=== PATIENT | female | born 1935 | race Caucasian/White ===

== ENCOUNTER 2017-06-16 09:46 | Emergency (ER) | payer MEDICARE ==
[2017-06-16 09:56] VITALS: BP 166/67
--- NOTE | 2017-06-16 10:28 | UC ---
Complaint Female HPI - HPI Summary HPI Summary: Patient presents with urgency, frequency, burning upon urination. Dark colored , cloudy urine. Denies flank pain. Denies diaphoresis and chills. Denies known fever. No abnormal vaginal discharge reported. She has had UTI's in the past and this feels similar. - History Of Current Complaint Chief Complaint: UCGU Stated Complaint: URINARY Time Seen by Provider: 06/16/17 10:18 Hx Obtained From: Patient ?: No Onset/Duration: Sudden Onset Timing: Constant Severity Initially: Mild Severity Currently: Mild Pain Intensity: 2 Pain Scale Used: 0-10 Numeric Character: Burning Aggravating Factor(s): Nothing Alleviating Factor(s): Nothing Associated Signs And Symptoms: Positive: Negative - Risk Factors Ectopic Risk Factor: Negative Ovarian Torsion Risk Factor: Negative - Allergies/Home Medications Allergies/Adverse Reactions: Allergies Allergy/AdvReac Type Severity Reaction Status Date / Time Amoxicillin Allergy Vomiting Verified 06/16/17 09:56 Codeine Allergy Vomiting Verified 06/16/17 09:56 PMH/Surg Hx/FS Hx/Imm Hx Previously Healthy: Yes - Surgical History Surgical History: Yes Surgery Procedure, Year, and Place: right shoulder surgery, right elbow surgery , tubal ligation - Family History Known Family History: Positive: Cardiac Disease, Hypertension - Social History Occupation: Retired Lives: With Family Alcohol Use: None Substance Use Type: None Smoking Status (MU): Never Smoked Tobacco Review of Systems Constitutional: Negative Respiratory: Negative Cardiovascular: Negative Gastrointestinal: Negative Genitourinary: Dysuria, Frequency, Urgency Motor: Negative Neurovascular: Negative Musculoskeletal: Negative Neurological: Negative Psychological: Negative Is Patient Immunocompromised?: No All Other Systems Reviewed And Are Negative: Yes Physical Exam Triage Information Reviewed: Yes Appearance: Well-Appearing, Well-Nourished Vital Signs: Initial Vital Signs Temp 97.0 F 06/16/17 09:52 Pulse 91 06/16/17 09:52 Resp 14 06/16/17 09:52 BP 166/67 06/16/17 09:52 Pulse Ox 97 06/16/17 09:52 Vital Signs Reviewed: Yes Eye Exam: Normal Eyes: Positive: Conjunctiva Clear Neck exam: Normal Neck: Positive: Supple, Nontender, No Lymphadenopathy Respiratory Exam: Normal Respiratory: Positive: Chest non-tender, Lungs clear Cardiovascular Exam: Normal Cardiovascular: Positive: RRR Musculoskeletal Exam: Normal Musculoskeletal: Positive: Strength Intact Neurological Exam: Normal Neurological: Positive: Alert Psychological Exam: Normal Skin Exam: Normal Complaint Female Dx - Course Course Of Treatment: BP elevated at this time. Patient is advised to follow up with primary care provider in 1-2 weeks. Patients Medications reviewed with patients. UA performed. WBC and leuks seen. Patient experiencing urgency, frequency and pain on urination. Dark urine noted. No abnormal vaginal discharge or bleeding. No CVA tenderness bilaterally. No previous UTI within last 6 months and no recent Augmentin use. Will treat for uncomplicated UTI. Pyridium given for comfort. Return precautions and follow up with PCP. Macrobid. Patient Ok with discharge. - Differential Dx/Diagnosis Differential Diagnosis/HQI/PQRI: Renal Colic, Urinary Tract Infection Provider Diagnoses: UTI Discharge - Discharge Plan Condition: Stable Disposition: HOME Prescriptions: Nitrofurantoin Monohyd Macro [Macrobid] 100 mg PO BID #10 cap Phenazopyridine TAB* [Pyridium 100 mg TAB*] 100 mg PO TID #15 tab Patient Education Materials: Urinary Tract Infection in Women (ED) Referrals: Emanuel Oliva MD [Primary Care Provider] - Additional Instructions: Dx. Urinary Tract Infection Drink plenty of fluids. Supplement with cranberry or corrales juice. You may also take an over the counter cranberry supplement. If you have any questions about this, you may ask your pharmacist. If your symptoms have not improved in 1-2 days, if you develop fever, sweats or chills, please go to your emergency room, or call your PCP. Antibiotics were prescribed to you. Please take as directed. Supplement with over the counter probiotics on the opposite schedule of your antibiotic to prevent secondary infections. Do not take together as they may counteract each other. Pyridium: This medication is used to treat pain, burning, increased urination, and increased urge to urinate. These symptoms are usually caused by infection, injury, surgery, catheter, or other conditions that irritate the lower urinary tract. Pyridium will treat the symptoms of a urinary tract infection, but this medication does not treat the actual infection. Take the antibiotic that your doctor prescribes to treat your infection. Pyridium will most likely darken the color of your urine to an orange or red color. This is a normal effect and is not cause for alarm unless you have other symptoms such as pale or yellowed skin, fever, stomach pain, nausea, and vomiting. Darkened urine may also cause stains to your underwear, which may or may not be removed by laundering. It can also permanently stain soft contact lenses, and you should not wear them while taking this medicine.
--- NOTE | 2017-06-19 07:13 | UC ---
Progress - Progress Note Progress Note: please notify pt that her infection may not be completely eradicated by the antibotic she is on stop macrobid begin bactrim ds - one twice daily for 5 days
== END 2017-06-16 10:41 | disposition home or self-care (01) ==
LOC: UCCORT 09:46
DX: N39.0 Urinary tract infection, site not specified (principal); Z88.1 Allergy status to other antibiotic agents; Z88.5 Allergy status to narcotic agent
CPT/HCPCS: 81003; 87077; 87086; 87186; 99212; G0463

== ENCOUNTER 2018-12-01 09:39 | Emergency (ER) | payer MEDICARE ==
--- OUTSIDE RECORDS SUMMARY | 2018-12-01 10:08 | XMS REPORT | Continuity of Care Document ---
:1935 External Reference #:[id number] Author Name Teto Voss D.O. Address [address] [place] [address] Care Team Providers Name Role Phone HCP given Primary Care Physician Unavailable Payers Date Identification Numbers Payment Provider Subscriber Effective: Policy Number: [id number] [facility] Jossie Wilson 1998 PayID: [id number] [facility] [address] [place] [id number] Policy Number: [id number] Medicaid Jossie Wilson PayID: [id number] [address] [place] [address] Advance Directives Description No Information Available Problems Date Description Provider Status Onset: 05/28/2011 Pure hypercholesterolemia Emanuel Oliva M.D. Active Family History Date Family Member(s) Observation Comments General Cancer Eldest sister of brain cancer at age 67 Mother of pancreatic cancer at age 93 Sister at age 95 (summer 2010) of cancer (unknown origin) Daughter w/ thyroid cancer Youngest brother at age 72 11/08/12 (lung and brain cancer); was a smoker 2nd to youngest brother at age 75 05/18/13 of lung cancer (and effects of radiation tx); was a smoker General COPD Brother Morgan from Cxs of COPD at age 72 ('03). Father From Heart Disease 1950 Age 63; Had heart problems for many yrs before, unsure of details. Mother Marietta Couch First Son Heart Disease Stent in his 40s; 1st [place] at age 47 First Son Brock Born 1957 First Daughter Cancer, Thyroid First Daughter Radha Born 1955 Number of Siblings Siblings: 11 Social History Type Date Description Comments Sex Unknown Education [employer] (NOS) Marital Status Patient is ( 11/18/17 of liver cancer) Employment Not currently working (retired) Tobacco Use Start: Unknown End: Does Not Smoke Unknown Cigarettes Cigarette Use 03/25/2014 Negative For Passive but prior to 1975 Smoke Exposure her did smoke Smoking Status Reviewed: 08/11/16 Does Not Smoke Cigarettes ETOH Use Denies alcohol use Recreational Drug Use Denies Drug Use Tobacco Use Start: Unknown Patient has never smoked Tobacco Use Start: Unknown Non Smoker / No Tobacco Sun Exposure Moderate amount of sun exposure. Does not use sunscreen Seat Belt/Car Seat Always uses a seat belt Allergies, Adverse Reactions, Alerts Date Description Reaction Status Severity Comments 08/25/2005 Codeine Active 08/25/2005 Amoxicillin Active 04/08/2014 Clarithromycin Active Drug rash (non urticarial) Medications Medication Date Status Form Strength Qnty SIG Indications Ordering Provider Colcrys 11/29/ Active Tablets 0.6mg 60tab take 2 M10.061 Sopchak, 2019 s immediately Teto, then 1 1 D.O. hour later. then next day take 1 twice a day. Tylenol Extra 07/26/ Active Tablets 500mg 60tab 1q6hr prn Unknown Strength 2011 s for pain Nitrofurantoin 05/20/ Hx Capsules 100mg 14cap 1 tab po bid N39.0 Hektor , Monohyd Macro 2016 - s x7 days LAURI Donnelly 2015 Benzonatate 09/01/ Hx Capsules 200mg 30cap 1 by mouth R05 Hazel, 2015 - s three times Emanuel 09/11/ a day as M.DJolene 2014 needed for cough Simvastatin 07/29/ Hx Tablets 20mg 1 by mouth E78.0 Hazel, 2013 - every day to Emanuel 02/08/ lower Jhon 2015 cholesterol Prednisone 04/12/ Hx Tablets 10mg 2 by mouth 693.0 Silcoff, 2013 - 2x/day thru Emanuel 04/23/ /2; Jhon 2013 starting 04/14 to 1 pill 2x/d x5d then 1 pill qd x5d then 1/2 pill daily for 5d then D/C E930.3 Prednisone 04/08/2014 - Hx Tablets 10mg 50tabs 2 by mouth 693.0 Silcoff , 04/12/2014 twice a day to Jhon Castellanos start, taper as directed E930.3 Prednisone 03/25/2014 - Hx Tablets 20mg 24tabs 1 bid for a 786.2 Riley A. 04/05/2014 week then 1 Klepack, qd M.D. Clarithromycin 03/25/2014 - Hx Tablets 250mg 20tabs 1 by mouth 786.2 Riley A. 04/05/2014 twice a day Klelisa, until gone M.D. Delsym 03/25/2014 - Hx Liquid ER 30mg/5 otc 1-2 tsp every 786.2 Riley A. 04/04/2014 ML 12 hours Jhon Rockwell Prednisone 02/20/2014 - Hx Tablets 50mg 5tabs 1 pill daily 786.2 Neetucoquintin, 02/25/2014 for 5 days, Emanuel for cough M.D. Levofloxacin 02/11/2014 - Hx Tablets 750mg 10tabs 1 by mouth 486 Silcoff, 02/21/2014 every day for Emanuel, pneumonia M.D. Benzonatate 02/11/2014 - Hx Capsules 100mg 30caps 1-2 by mouth 786.2 Neetucoquintin, 02/21/2014 three times a Emanuel, day as needed M.D. for cough Loratadine 02/10/2014 - Hx Capsules 10mg OTC 1 po qd prn Unknown 08/10/2016 Simvastatin 08/02/2013 - Hx Tablets 40mg take 1 tablet 272.0 Silcoff, 07/29/2014 by mouth Emanuel, every evening M.D. for high cholesterol Benadryl 07/26/2012 - Hx Tablets 25mg otc 1 tab every Unknown 02/10/2014 six hours prn allergies Simvastatin 06/01/2011 - Hx Tablets 20mg 90tabs 1 by mouth 272.0 Silcoff, 08/02/2013 every evening Emanuel to lower M.D. cholesterol Prednisone 09/29/2007 - Hx Tablets 20mg QS 3 po qd for 5 786.2 Neetucoquintin, 10/10/2007 days then 2 Emanuel, po qd for 3 M.D. days then 1 po qd for 3 days then D/c Levaquin 09/22/2007 - Hx Tablets 500mg 10tabs 1 PO qd For 786.2 Neetucoquintin , 09/29/2007 10 Days Jhon Castellanos Benzonatate 09/22/2007 - Hx Capsules 100mg 30caps 1-2 PO tid 786.2 Silcoff, 05/26/2011 prn For Cough Jhon Castellanos Albuterol 09/22/2007 - Hx Aerosol 90mcg/ 1units 2 Puffs Q4H 786.2 Silcoff, 05/27/2011 Act prn For cough Jesus Castellanos. Zithromax Z-Josiah 09/07/2007 - Hx Tablets 250mg 1Pack 2 Tablets PO 786.2 Kandyson, 09/12/2007 Day 1, Then Mary Jo POST One Tablet PO Day 2 To 5 Aspirin 05/08/2007 - Hx Tablets 81mg 1 PO qd For 272.0 Unknown 05/27/2011 Heart Disease Prevention Advair Diskus 10/07/2006 - Hx Inhaler 500mcg 1units 1 puff bid 786.2 klepack 05/27/2011 ;50mcg Albuterol 10/07/2006 - Hx Aerosol 90mcg/ 1units 2 Puffs Q4HR 786.2 [facility] 11/09/2006 Dose prn Zithromax Z-Josiah 09/29/2006 - Hx Tablets 250mg take as 786.2 [facility] 10/07/2006 directed #one pack Levaquin 09/29/2006 - Hx Tablets 250mg 11tabs 2 po today 786.2 klepack 10/07/2006 then 1 po q day Prednisone 09/29/2006 - Hx Tablets 20mg 10tabs 1 po bid x 5 786.2 klepack 10/07/2006 days Lipitor 08/16/2006 - Hx Tablets 20mg 90Sample 1/2 po qd for 272.0 Silcoff, 08/22/2007 high divine Castellanos M.D. Tramadol 03/25/2006 - Hx Tablets 50mg 30tabs 1-2 po q6h 729.5 Silcoff, 05/20/2006 prn for pain Jhon Castellanos Tylenol 03/23/2006 - Hx Tablets 650mg prn hs Silcoff, 05/20/2006 Jhon Castellanos Lipitor 12/27/2005 - Hx Tablets 10mg 90tabs 1 po qd to 272.0 Silcoff, 08/16/2006 reduce divine Castellanos M.D. Zithromax Z-Josiah 08/20/2005 - Hx Tablets 250mg take as 786.2 mariah 08/24/2005 directed #one pack Medications Administered in Office Medication Date Status Form Strength Qnty SIG Indications Ordering Provider TB Intradermal Administered Injection Riley Rockwell M.D. Immunizations CPT Code Status Date Vaccine Lot # [id number] Given 05/20/2006 Td Immunization 56907 Refused 08/12/2017 Influenza Virus Vaccine, Quadrivalent, Split, Preservative Free [id number] Refused 08/05/2015 Adacel or Boostrix, TDaP [id number] Refused 07/30/2014 Prevnar 13 [id number] Refused 07/27/2012 Flu, Split Virus 3Yrs [id number] Refused 05/23/2007 Zostavax Vital Signs Date Vital Result Comment 11/29/2018 4:02pm BP Systolic 152 mmHg BP Diastolic 70 mmHg 08/16/2018 8:41am BP Systolic 134 mmHg BP Diastolic 80 mmHg Heart Rate 80 /min reg Respiratory Rate 12 /min not laboured Height 63 inches 5'3" Weight 186.00 lb BMI (Body Mass Index) 32.9 kg/m2 04/18/2018 9:41am BP Systolic 146 mmHg BP Diastolic 74 mmHg BP Systolic Recheck 122 mmHg BP Diastolic Recheck 72 mmHg Height 62.75 inches 5'2.75" Weight 182.00 lb BMI (Body Mass Index) 32.5 kg/m2 08/12/2017 10:12am BP Systolic 132 mmHg BP Diastolic 80 mmHg Height 62.5 inches 5'2.50" Weight 181.00 lb BMI (Body Mass Index) 32.6 kg/m2 08/11/2016 9:59am BP Systolic 110 mmHg BP Diastolic 62 mmHg Heart Rate 84 /min reg w/ frequent extra beats Respiratory Rate 14 /min not laboured Height 62.50 inches 5'2.50" Weight 185.00 lb BMI (Body Mass Index) 33.3 kg/m2 05/20/2016 2:16pm BP Systolic 124 mmHg BP Diastolic 68 mmHg Body Temperature 97.9 F Height 62.50 inches 5'2.50" Weight 191.00 lb BMI (Body Mass Index) 34.4 kg/m2 09/01/2015 12:14pm BP Systolic 112 mmHg BP Diastolic 78 mmHg Heart Rate 80 /min reg Respiratory Rate 12 /min not laboured Body Temperature 98.1 F 08/05/2015 9:11am BP Systolic 124 mmHg BP Diastolic 86 mmHg Height 63.5 inches dec taking off low shoe Weight 184.00 lb BMI (Body Mass Index) 32.1 kg/m2 07/30/2014 11:10am BP Systolic 140 mmHg BP Diastolic 84 mmHg Heart Rate 80 /min reg Respiratory Rate 12 /min not laboured Height 62.25 inches 5'2.25" Weight 184.00 lb BMI (Body Mass Index) 33.4 kg/m2 04/08/2014 2:06pm Body Temperature 98.3 F 04/05/2014 9:27am BP Systolic 158 mmHg BP Diastolic 98 mmHg BP Systolic Recheck 134 mmHg R arm sitting BP Diastolic Recheck 72 mmHg R arm sitting Heart Rate 76 /min reg Respiratory Rate 12 /min not laboured Weight 187.00 lb 03/25/2014 4:06pm BP Systolic 150 mmHg BP Diastolic 74 mmHg Heart Rate 94 /min O2 % BldC Oximetry 97 % on Ra resting, 95% ambulating on ra Body Temperature 98.5 F Weight 191.00 lb 02/27/2014 9:20am BP Systolic 138 mmHg BP Diastolic 80 mmHg Heart Rate 88 /min reg Respiratory Rate 12 /min not laboured O2 % BldC Oximetry 97 % walking--93/94/95 Body Temperature 98.3 F Weight 194.00 lb 02/20/2014 11:41am BP Systolic 118 mmHg BP Diastolic 80 mmHg Respiratory Rate 14 /min not laboured; mod frequent cough O2 % BldC Oximetry 89 % 82 after walking Body Temperature 98.3 F Weight 194.00 lb 02/11/2014 4:47pm BP Systolic 142 mmHg BP Diastolic 90 mmHg Heart Rate 98 /min reg Respiratory Rate 14 /min not laboured O2 % BldC Oximetry 96 % on ra Body Temperature 98.8 F Height 62.75 inches 5'2.75" Weight 195.00 lb BMI (Body Mass Index) 34.8 kg/m2 07/30/2013 10:03am BP Systolic 120 mmHg BP Diastolic 78 mmHg Heart Rate 76 /min reg Respiratory Rate 12 /min not laboured Height 64 inches 5'4" Weight 195.00 lb BMI (Body Mass Index) 33.5 kg/m2 07/27/2012 12:41pm BP Systolic 132 mmHg BP Diastolic 76 mmHg Heart Rate 80 /min reg Respiratory Rate 14 /min not laboured Height 63 inches 5'3" Weight 195.00 lb BMI (Body Mass Index) 34.5 kg/m2 05/28/2011 8:47am BP Systolic 128 mmHg BP Diastolic 78 mmHg Heart Rate 80 /min reg Respiratory Rate 12 /min not laboured Height 63 inches 5'3" Weight 193.00 lb BMI (Body Mass Index) 34.2 kg/m2 10/06/2007 1:12pm BP Systolic 140 mmHg BP Diastolic 78 mmHg Weight 190.00 lb BMI (Body Mass Index) 32.6 kg/m2 09/29/2007 5:29pm BP Systolic 156 mmHg BP Diastolic 82 mmHg Respiratory Rate 16 /min not laboured Body Temperature 98.5 F Height 64 inches 5'4" Weight 195.00 lb BMI (Body Mass Index) 33.5 kg/m2 09/22/2007 11:29am BP Systolic 128 mmHg BP Diastolic 80 mmHg Heart Rate 84 /min reg Respiratory Rate 18 /min not laboured; frequent cough Body Temperature 98.6 F Height 64 inches 5'4" Weight 195.00 lb BMI (Body Mass Index) 33.5 kg/m2 Last Menstrual Period 0 09/07/2007 2:18pm BP Systolic 124 mmHg BP Diastolic 78 mmHg Body Temperature 99.3 F Height 64 inches 5'4" Weight 196.00 lb BMI (Body Mass Index) 33.6 kg/m2 Last Menstrual Period 0 05/23/2007 9:25am BP Systolic 140 mmHg BP Diastolic 80 mmHg Height 64 inches 5'4" Weight 190.50 lb BMI (Body Mass Index) 32.7 kg/m2 05/06/2007 11:40am BP Systolic 118 mmHg BP Diastolic 80 mmHg BP Systolic Standing Resting Right Arm 122 mmHg BP Diastolic Standing Resting Right Arm 80 mmHg Heart Rate 80 /min rrr Respiratory Rate 16 /min easy Height 64 inches 5'4" 10/07/2006 9:33am BP Systolic 140 mmHg BP Diastolic 74 mmHg Body Temperature 98.5 F Height 64 inches 5'4" Weight 178.00 lb BMI (Body Mass Index) 30.6 kg/m2 Last Menstrual Period 0 10/03/2006 8:41am BP Systolic 140 mmHg BP Diastolic 80 mmHg Body Temperature 98.9 F Height 64 inches 5'4" Weight 180.00 lb BMI (Body Mass Index) 30.9 kg/m2 Last Menstrual Period 0 09/29/2006 9:38am BP Systolic 122 mmHg BP Diastolic 64 mmHg Body Temperature 98.9 F Height 64 inches 5'4" Weight 180.50 lb With Boots BMI (Body Mass Index) 31.0 kg/m2 08/16/2006 9:25am BP Systolic 154 mmHg BP Diastolic 88 mmHg BP Systolic Recheck 146 mmHg R armn sitting BP Diastolic Recheck 88 mmHg R armn sitting Heart Rate 74 /min reg Height 64 inches 5'4" Weight 185.00 lb BMI (Body Mass Index) 31.8 kg/m2 05/20/2006 12:59pm BP Systolic 130 mmHg BP Diastolic 60 mmHg Height 64 inches 5'4" Weight 180.00 lb BMI (Body Mass Index) 30.9 kg/m2 03/23/2006 3:01pm BP Systolic 142 mmHg BP Diastolic 80 mmHg Heart Rate 76 /min reg Respiratory Rate 12 /min not laboured Height 64 inches 5'4" Weight 188.00 lb BMI (Body Mass Index) 32.3 kg/m2 02/14/2006 8:42am BP Systolic 126 mmHg BP Diastolic 68 mmHg BP Systolic Recheck 126 mmHg R arm sitting BP Diastolic Recheck 60 mmHg R arm sitting Height 64 inches 5'4" Weight 188.00 lb BMI (Body Mass Index) 32.3 kg/m2 Last Menstrual Period 0 12/27/2005 11:38am BP Systolic 160 mmHg R arm sitting BP Diastolic 84 mmHg R arm sitting BP Systolic Recheck 150 mmHg by RN BP Diastolic Recheck 82 mmHg by platform attendant Rate 68 /min reg Respiratory Rate 12 /min not laboured Height 64 inches 5'4" Weight 189.00 lb BMI (Body Mass Index) 32.4 kg/m2 11/24/2005 2:38pm BP Systolic 138 mmHg BP Diastolic 74 mmHg Body Temperature 97.7 F Height 64 inches 5'4" Weight 188.00 lb BMI (Body Mass Index) 32.3 kg/m2 Last Menstrual Period 0 08/20/2005 11:26am BP Systolic 130 mmHg BP Diastolic 90 mmHg Body Temperature 98.3 F Height 64 inches 5'4" Weight 190.00 lb BMI (Body Mass Index) 32.6 kg/m2 Results Test Date Facility Test Result H/L Range Note CBC Auto Diff 04/18/2018 [facility] White Blood 7.3 10^3/uL N 3.5- 10.8 [phone] Count Red Blood Count 4.30 10^6/uL N 4.00-5.40 Hemoglobin 13.2 g/dL N 12.0-16.0 Hematocrit 40 % N 35-47 Mean Corpuscular Volume 93 fL N 80-97 Mean Corpuscular Hemoglobin 31 pg N 27-31 Mean Corpuscular HGB Conc 33 g/dL N 31-36 Red Cell Distribution Width 13 % N 10.5-15 Platelet Count 271 10^3/uL N 150-450 Mean Platelet Volume 8.5 um3 N 7.4-10.4 Abs Neutrophils 4.8 10^3/uL N 1.5-7.7 Abs Lymphocytes 1.9 10^3/uL N 1.0-4.8 Abs Monocytes 0.4 10^3/uL N 0-0.8 Abs Eosinophils 0.1 10^3/uL N 0-0.6 Abs Basophils 0.1 10^3/uL N 0-0.2 Abs Nucleated RBC 0 10^3/uL Granulocyte % 65.9 % N 38-83 Lymphocyte % 25.8 % N 25-47 Monocyte % 5.9 % N 0-7 Eosinophil % 1.5 % N 0-6 Basophil % 0.9 % N 0-2 Nucleated Red Blood Cells % 0.1 Comp Metabolic Panel 04/18/2018 [facility] Sodium 141 mmol/L N 135- 145 [phone] Potassium 4.1 mmol/L N 3.5-5.0 Chloride 105 mmol/L N 101-111 Co2 Carbon Dioxide 28 mmol/L N 22-32 Anion Gap 8 mmol/L N 2-11 Glucose 99 mg/dL N 70-100 Blood Urea Nitrogen 13 mg/dL N 6-24 Creatinine 0.94 mg/dL N 0.51-0.95 BUN/Creatinine Ratio 13.8 N 8-20 Calcium 10.2 mg/dL N 8.6-10.3 Total Protein 6.8 g/dL N 6.4-8.9 Albumin 4.3 g/dL N 3.2-5.2 Globulin 2.5 g/dL N 2-4 Albumin/Globulin Ratio 1.7 N 1-3 Total Bilirubin 0.50 mg/dL N 0.2-1.0 Alkaline Phosphatase 59 U/L N 34-104 Alt 4 U/L Low 7-52 Ast 14 U/L N 13-39 Egfr Non- 56.6 >60 Egfr 68.5 >60 1 Laboratory test 06/16/2017 [facility] Urine Culture And SEE RESULT 2, 3 finding [phone] Sensitivities BELOW Laboratory test 08/11/2016 [facility] Alt (SGPT) 4 U/L Low 7-52 4 finding [phone] Lipid Profile 08/11/2016 [facility] Triglycerides 235 mg/dL N 5 (Trig/Chol/HDL) [phone] Cholesterol 232 mg/dL N 6 HDL Cholesterol 36.6 mg/dL N 7 LDL Cholesterol 148 mg/dL N 8 Laboratory test 08/11/2016 [facility] Glucose 99 mg/dL N 70-100 9 finding [phone] Laboratory test 08/11/2016 In House Hemoglobin A1c 5.8 finding Urine Micro Inhouse 05/20/2016 In House Ua WBC 10-20 with clums Ua RBC - Ua Casts - Ua Epi 3-6 Ua Other - Ua Glucose - Ua Bilirubin - Ua Ketones - Ua Specific [place] 1.005 Ua Blood - Ua PH 8.5 Ua Protein - Ua Urobilinogen - Ua Nitrite - Ua Leukocytes 2+ Laboratory test 05/20/2016 [facility] Urine Culture And SEE RESULT 10 finding [phone] Sensitivities BELOW Laboratory test 08/05/2015 [facility] Alt (SGPT) 6 U/L Low 7-52 11 finding [phone] Glucose 97 mg/dL N 70-100 12 Lipid Profile 08/05/2015 [facility] Triglycerides 260 mg/dL N 13 (Trig/Chol/HDL) [phone] Cholesterol 217 mg/dL N 14 HDL Cholesterol 48.0 mg/dL N 15 LDL Cholesterol 117 mg/dL N 16 Laboratory test 07/30/2014 [facility] Alt 5 U/L Low 7-52 17, 18 finding [phone] Lipid Profile 07/30/2014 [facility] Triglycerides 205 mg/dL N 19 (Trig/Chol/HDL) [phone] Cholesterol 195 mg/dL N 20 HDL Cholesterol 45.6 mg/dL N 21 LDL Cholesterol 108 mg/dL N 22 Occult Blood,Triple 07/30/2014 In House Misc neg x3 Laboratory test finding 04/05/2014 In House Glucose Quantitative 75 Hemoglobin A1c 6.3 Basic Metabolic Panel 03/26/2014 [facility] Sodium 136 mmol/L N 133- 145 [phone] Potassium 4.1 mmol/L N 3.7-5.6 Chloride 101 mmol/L N 101-111 Co2 Carbon Dioxide 26 mmol/L N 22-32 Anion Gap 9 mmol/L N 2-11 Glucose 190 mg/dL High 70-100 Blood Urea Nitrogen 15 mg/dL N 6-24 Creatinine 0.98 mg/dL High 0.51-0.95 BUN/Creatinine Ratio 15.3 N 8-20 Calcium 9.5 mg/dL N 8.6-10.3 Egfr Non- 54.6 N >60 Egfr 70.2 N >60 23 Order 03/25/2014 [facility] [place] Oximetry Multiple 97% resting on 24 Ra, % Xray 03/25/2014 [facility] [place] X-Ray, Chest, 2 see note 25 Views Occult 09/10/2013 In House Misc neg x3 Blood,Triple Urine Micro 07/30/2013 In House Ua WBC - Inhouse Ua RBC - Ua Casts - Ua Epi - Ua Other - Ua Glucose - Ua Bilirubin - Ua Ketones - Ua Specific [place] 1.005 Ua Blood - Ua PH 7.5 Ua Protein - Ua Urobilinogen - Ua Nitrite - Ua Leukocytes - Laboratory test finding 07/30/2013 [facility] Alt 10 U/L Low 14-54 26 [phone] Glucose 93 mg/dL 70-100 27 Lipid Profile 07/30/2013 [facility] Triglycerides 286 mg/dL High 40- 200 (Trig/Chol/HDL) [phone] Cholesterol 255 mg/dL High Less than 200 HDL Cholesterol 48 mg/dL 40-60 28 Cholesterol/HDL Ratio 5.3 Average High 1-4.44 LDL Cholesterol 149.8 High Less Than 100 29 Lipid Profile 07/27/2012 [facility] Triglycerides 224 mg/dL High 40- 200 (Trig/Chol/HDL) [phone] Cholesterol 178 mg/dL Less than 200 HDL Cholesterol 45 mg/dL 40-60 30 Cholesterol/HDL Ratio 4.0 AVERAGE 1-4.44 LDL Cholesterol 88.2 mg/dL Less Than 100 31 Laboratory test 07/27/2012 In House Occult Blood - neg x3 finding Stool Laboratory test 08/23/2011 [facility] Alt (SGPT) 9 U/L Low 14-54 finding [phone] Lipid Profile 08/23/2011 [facility] Triglyceride 251 mg/dL High 40- 200 (Trig/Chol/HDL) [phone] Cholesterol 246 mg/dL High Less Than 200 32 High Density Lipoprotein 47 mg/dL 40-60 33 Cholesterol/HDL Ratio 5.23 AVERAGE High 1-4.44 Low Density Lipoprotein 149 mg/dL High Less Than 100 34 CBC Auto Diff 05/28/2011 [facility] White Blood Count 6.5 CUMM 4.8- 10.8 [phone] Red Cell Count 4.26 CUMM 4.2-5.4 Hemoglobin 13.6 g/dL 12.0-16.0 Hematocrit 39 % 35-47 Mean Corpuscular Volume 92 um3 79-97 Mean Corpuscular Hemoglob 32 pg High 27-31 Mean Corpuscular HGB Cone 35 g/dL 32-36 Redcell Distribution WDTH 13 % 10.5-15 Platelet Count 257 CUMM 150-450 Mean Platelet Volume 8.3 um3 7.4-10.4 Gran % 63.7 % 38-83 Lymph % 27.4 % 25-47 Mononuclear % 5.9 % 1-9 Eosinophil % 2.4 % 0-6 Basophil % 0.6 % 0-2 Abs Lymphs 1.8 1.0-4.8 Abs Mononuclear 0.4 0-0.8 Absolute Neutrophil Count 4.2 1.5-7.7 Abs Eosinophils 0.2 0-0.6 Abs Basophils 0 0-0.2 Laboratory test 05/28/2011 In House Occult Blood - neg x3 finding Stool Comp Metabolic Panel 05/28/2011 [facility] Sodium 140 mmol/L 135- 145 [phone] Potassium 4.3 mmol/L 3.5-5.0 Chloride 104 mmol/L 101-111 Co2 (Carbon Dioxide) 29.0 mmol/L 22-32 Anion Gap 7.0 mmol/L 2-11 35 Glucose 101 mg/dL High 70-100 BUN 14 mg/dL 6-24 Creatinine 1.0 mg/dL 0.50-1.40 One Over Creatinine 1.00 BUN/Creatinine Ratio 14.0 8-20 Calcium 9.6 mg/dL 8.1-9.9 Total Protein 6.9 GM/DL 6.2-8.1 Albumin 4.3 GM/DL 3.2-5.2 Globulin 2.6 GM/DL 2-4 Albumin/Globulin Ratio 1.7 1-3 Bilirubin Total 0.8 mg/dL 0.4-1.5 36 Alkaline Phosphatase 53 U/L 30-110 Alt (SGPT) 9 U/L Low 14-54 Ast (Sgot) 25 U/L 12-42 eGFR Non- 53.6 > 60 eGFR 69.0 > 60 37 Lipid Profile 05/28/2011 [facility] Triglyceride 305 mg/dL High 40- 200 (Trig/Chol/HDL) [phone] Cholesterol 263 mg/dL High Less Than 200 38 High Density Lipoprotein 45 mg/dL 40-60 39 Cholesterol/HDL Ratio 5.84 AVERAGE High 1-4.44 Low Density Lipoprotein 157 mg/dL High Less Than 100 40 Laboratory test 05/28/2011 [facility] TSH 1.89 MIU/ML 0.34-5.60 finding [phone] Laboratory test 10/28/2006 [facility] Alt (SGPT) 9 U/L Low 14-54 finding [phone] Lipid Profile 10/28/2006 [facility] Cholesterol/ 5.07 AVERAGE High 1- 4.44 (Trig/Chol/HDL) [phone] HDL Ratio Cholesterol 233 mg/dL High Less Than 200 41 Triglyceride 238 mg/dL High 40-200 High Density Lipoprotein 46 mg/dL 40-60 Low Density Lipoprotein 139 mg/dL High Less Than 100 42 Basic Metabolic Panel Stat 09/29/2006 [facility] One Over Creatinine 1.00 [phone] Anion Gap 6.0 mmol/L 2-11 43 BUN 17 mg/dL 6-24 Calcium 9.5 mg/dL 8.7-10.2 Chloride 105 mmol/L 101-111 Co2 (Carbon Dioxide) 27.0 mmol/L 22-32 Glucose 115 mg/dL High 70-105 Potassium 4.1 mmol/L 3.5-5.0 Sodium 138 mmol/L 135-145 BUN/Creatinine Ratio 17.0 8-20 Creatinine 1.0 mg/dL 0.5-1.4 Laboratory test 08/08/2006 [facility] Alt (SGPT) 8 U/L Low 14-54 finding [phone] Lipid Profile 08/08/2006 [facility] Cholesterol/HD 6.44 AVERAGE High 1-4.44 (Trig/Chol/HDL) [phone] L Ratio Cholesterol 290 mg/dL High Less Than 200 44 Triglyceride 253 mg/dL High 40-200 High Density Lipoprotein 45 mg/dL 40-60 Low Density Lipoprotein 194 mg/dL High Less Than 100 45 Laboratory test 03/08/2006 In House Occult Blood - NEG X 3 finding Stool Laboratory test 02/08/2006 [facility] Alt (SGPT) 11 U/L Low 14-54 46 finding [phone] Glucose 96 mg/dL 70-105 Lipid Profile 02/08/2006 [facility] Cholesterol 233 mg/dL High Less Than 47 (Trig/Chol/HDL) [phone] 200 Triglyceride 264 mg/dL High 40-200 High Density Lipoprotein 46 mg/dL 40-60 Low Density Lipoprotein 134 mg/dL High Less Than 100 48 Cholesterol/HDL Ratio 5.07 AVERAGE High 1-4.44 Hemoglobin/Hematacrit 11/29/2005 [facility] Hematocrit 40 % 35-47 [phone] Hemoglobin 13.7 g/dL 12.0-16.0 Laboratory test 11/29/2005 [facility] TSH 2.07 MIU/ML 0.34-5.60 finding [phone] Laboratory test 11/29/2005 [facility] Alt (SGPT) 10 U/L Low 14-54 finding [phone] Lipid Profile 11/29/2005 [facility] Cholesterol/ 6.44 AVERAGE High 1- 4.44 (Trig/Chol/HDL) [phone] HDL Ratio Cholesterol 290 mg/dL High Less Than 200 49 Triglyceride 315 mg/dL High 40-200 High Density Lipoprotein 45 mg/dL 40-60 Low Density Lipoprotein 182 mg/dL High Less Than 100 50 Laboratory test finding 08/20/2005 In House Culture Throat Rapid Screen NEG Culture Throat NEG P/ 1 Because ethnic data is not always readily available, this report includes an eGFR for both -Americans and non- Americans. The National Kidney Disease Education Program (NKDEP) does not endorse the use of the MDRD equation for patients that are not between the ages of 18 and 70, are , have extremes of body size, muscle mass, or nutritional status, or are non- or non-. According to the National Kidney Foundation, irrespective of diagnosis, the stage of the disease is based on the level of kidney function: Stage Description GFR(mL/min/1.73 m(2)) 1 Kidney damage with normal or decreased GFR 90 2 Kidney damage with mild decrease in GFR 60-89 3 Moderate decrease in GFR 30-59 4 Severe decrease in GFR 15-29 5 Kidney failure <15 (or dialysis) 2 [id number] 3 SEE RESULT BELOW Name: JOSSIE WILSON : [address]: Zana Calle DO Acct: [id number] Unit: [id number] AGE: 82 Location: [facility] Re06/16/17 SEX: F Status: DEP ER SPEC: [id number] STEPHANIE: 06/16/[address] [facility] [address]: Zana Calle DO REQ: [id number] RECD: 06/16/17 STATUS: GODFREY ROBERTSON DR: [facility] Emanuel Oliva MD _ SOURCE: URINE SPDESC: ORDERED: Urine Culture COMMENTS: [id number] Procedure Result Reported Site Urine Culture Final 06/18/17- 848 ML Organism 1 KLEBSIELLA PNEUMONIAE [place] Count >100,000 (Many) CFU/ML 1. KLEBSIELLA PNEUMONIAE [facility] RX --------- ------ Ampicillin R Cefazolin <=4 S Cefepime <=1 S Ceftriaxone <=1 S Ciprofloxacin <=0.25 S Gentamicin <=1 S Levofloxacin <=0.12 S Meropenem <=0.25 S Nitrofurantoin 64 I Tetracycline <=1 S Pipercillin/Tazobactam <=4 S Trimethoprim/Sulfamethoxazole <=20 S Amoxicillin/Clavulanic Acid <=2 S Aztreonam <=1 S Contact the Microbiology Department for any additional antibiotic reporting. * ML - MAIN LAB ([facility]) . END OF REPORT * ML=Testing performed at Main Lab DEPARTMENT OF PATHOLOGY, [address] [place] [address] Anjum Jordan M.D. Director [facility] # [id number] 4 FASTING 12 HOUR 5 Desirable <150 Borderline high 150-199 High 200-499 Very High >500 6 Desirable <200 Borderline high 200-239 High >239 7 Low <40 Desirable: 40-60 High: >60 8 Desirable: <100 mg/dL Near Optimal: 100-129 mg/dL Borderline High: 130-159 mg/dL High: 160-189 mg/dL Very High: >189 mg/dL 9 FASTING 12 HOUR 10 SEE RESULT BELOW Name: JOSSIE WILSON : [address]: Cony DIMAS Acct: [id number] Unit: [id number] AGE: 81 Location: [facility] Re05/20/16 SEX: F Status: REG REF SPEC: [id number] STEPHANIE: 05/20/[address] [facility] [address]: Cony DIMAS REQ: [id number] RECD: 05/20/16 STATUS: COMP _ SOURCE: URINE SPDESC: ORDERED: Urine Culture [place] [facility] [place] [id number] Procedure Result Reported Site Urine Culture Final 05/21/16- 1611 ML No growth of clinically significant organisms * ML - MAIN LAB ([facility]) . END OF REPORT * ML=Testing performed at Main Lab DEPARTMENT OF PATHOLOGY, [address] [place] [address] Anjum Jordan M.D. Director [facility] # [id number] 11 FASTING 12 HOUR 12 FASTING 12 HOUR 13 Desirable <150 Borderline high 150-199 High 200-499 Very High >500 14 Desirable <200 Borderline high 200-239 High >239 15 Low <40 Desirable: 40-60 High: >60 16 Desirable: <100 mg/dL Near Optimal: 100-129 mg/dL Borderline High: 130-159 mg/dL High: 160-189 mg/dL Very High: >189 mg/dL 17 FASTING 12 HOUR 18 FASTING 12 HOUR 19 Desirable <150 Borderline high 150-199 High 200-499 Very High >500 20 Desirable <200 Borderline high 200-239 High >239 21 Low <40 Desirable: 40-60 High: >60 22 Desirable <100 Near Optimal 100-129 Borderline high 130-159 High 160-189 Very High >189 23 Because ethnic data is not always readily available, this report includes an eGFR for both -Americans and non- Americans. The National Kidney Disease Education Program (NKDEP) does not endorse the use of the MDRD equation for patients that are not between the ages of 18 and 70, are , have extremes of body size, muscle mass, or nutritional status, or are non- or non-. According to the National Kidney Foundation, irrespective of diagnosis, the stage of the disease is based on the level of kidney function: Stage Description GFR(mL/min/1.73 m(2)) 1 Kidney damage with normal or decreased GFR 90 2 Kidney damage with mild decrease in GFR 60-89 3 Moderate decrease in GFR 30-59 4 Severe decrease in GFR 15-29 5 Kidney failure <15 (or dialysis) 24 97% resting on RA, 95% ambulating on RA 25 [place] [facility] [place] 2011 there is no change in the cxr 26 FASTING 12 HOUR 27 FASTING 12 HOUR 28 HDL Interpretation: Undesirable: High Risk: Less than 40 mg/dL Desirable: Low Risk: Greater than 60 mg/dL 29 LDL Interpretation: Low Risk Optimal Level: LDL Less than 100 mg/dL Near or Above Optimal: LDL 100-129 mg/dL Borderline High Risk: LDL 130-159 mg/dL High Risk: LDL 160-189 mg/dL Very High Risk: LDL Greater than 189 mg/dL 30 HDL Interpretation: Undesirable: High Risk: Less than 40 MG/DL Desirable: Low Risk: Greater than 60 MG/DL 31 LDL Interpretation: Low Risk Optimal Level: LDL Less than 100 MG/DL Near or Above Optimal: LDL 100-129 MG/DL Borderline High Risk: LDL 130-159 MG/DL High Risk: LDL 160-189 MG/DL Very High Risk: LDL Greater than 189 MG/DL 32 CHOLESTEROL INTERPRETATION: Desirable: Less than 200 MG/DL Borderline-High Risk: 200-239 MG/DL High-Risk: 240 MG/DL and over 33 HDL INTERPRETATION: Undesirable: High Risk: Less than 40 MG/DL Desirable: Low Risk: Greater than 60 MG/DL 34 LDL INTERPRETATION: Low Risk Optimal Level: LDL Less than 100 MG/DL Near or Above Optimal: LDL 100-129 MG/DL Borderline High Risk: LDL 130-159 MG/DL High Risk: LDL 160-189 MG/DL Very High Risk: LDL Greater than 189 MG/DL 35 Anion gap measurement may be of limited value in the presence of any alkalosis, especially in a combined acid base disorder. . 36 A metabolite of Naproxen, O-desmethylnaproxen, has been shown to interfere with the [place] method for measuring total bilirubin. Samples from patients who have taken Naproxen have shown spurious elevation in total bilirubin levels. 37 Because ethnic data is not always readily available, this report includes an eGFR for both -Americans and non- Americans. The National Kidney Disease Education Program (NKDEP) does not endorse the use of the MDRD equation for patients that are not between the ages of 18 and 70, are , have extremes of body size, muscle mass, or nutritional status, or are non- or non-. According to the National Kidney Foundation, irrespective of diagnosis, the stage of the disease is based on the level of kidney function: Stage Description GFR(mL/min/1.73 m(2)) 1 Kidney damage with normal or decreased GFR 90 2 Kidney damage with mild decrease in GFR 60-89 3 Moderate decrease in GFR 30-59 4 Severe decrease in GFR 15-29 5 Kidney failure <15 (or dialysis) 38 CHOLESTEROL INTERPRETATION: Desirable: Less than 200 MG/DL Borderline-High Risk: 200-239 MG/DL High-Risk: 240 MG/DL and over 39 HDL INTERPRETATION: Undesirable: High Risk: Less than 40 MG/DL Desirable: Low Risk: Greater than 60 MG/DL 40 LDL INTERPRETATION: Low Risk Optimal Level: LDL Less than 100 MG/DL Near or Above Optimal: LDL 100-129 MG/DL Borderline High Risk: LDL 130-159 MG/DL High Risk: LDL 160-189 MG/DL Very High Risk: LDL Greater than 189 MG/DL 41 Classification: Borderline High . 42 CALCULATED LDL APPROXIMATES THE VALUE OF A DIRECT LDL MEASUREMENT. Classification: Borderline High . 43 Anion gap measurement may be of limited value in the presence of any alkalosis, especially in a combined acid base disorder. . 44 Classification: High . 45 CALCULATED LDL APPROXIMATES THE VALUE OF A DIRECT LDL MEASUREMENT. Classification: Very High . 46 FASTING 47 Classification: Borderline High . 48 CALCULATED LDL APPROXIMATES THE VALUE OF A DIRECT LDL MEASUREMENT. Classification: Borderline High . 49 Classification: High . 50 CALCULATED LDL APPROXIMATES THE VALUE OF A DIRECT LDL MEASUREMENT. Classification: High . Procedures Date Code Description Status 04/18/2018 05067 Electrocardiogram Complete Completed 08/12/2017 38029 Dexa Bone Density Study One Or More Sites Axial Completed Skeleton 09/01/2015 77641 X-Ray Chest Two Views Completed 03/25/2014 81876 Oximetry, Multiple Determinations (Eg, During Exercise) Completed 03/25/2014 26751 X-Ray Chest Two Views Completed 02/27/2014 99197 Oximetry, Multiple Determinations (Eg, During Exercise) Completed 02/20/2014 86250 Oximetry, Multiple Determinations (Eg, During Exercise) Completed 02/20/2014 32157 X-Ray Chest Single Completed 02/11/2014 94481 Oximetry, Single Completed 02/11/2014 17068 X-Ray Chest Two Views Completed 07/27/2012 96944 Dexa Bone Density Study One Or More Sites Axial Completed Skeleton 10/16/2007 0 Payment Completed 09/22/2007 98159 X-Ray Chest Two Views Completed 09/29/2006 86100 X-Ray Chest Two Views Completed 08/08/2006 0 Payment Completed 05/20/2006 61868 Electrocardiogram Complete Completed 03/24/2006 80406 X-Ray Tibia And Fibula,Ap & Lateral Views Completed 03/24/2006 57906 X-Ray Tibia And Fibula,Ap & Lateral Views Completed 03/24/2006 34018 X-Ray Femur, Ap & Lateral Views Completed 03/24/2006 67984 X-Ray Femur, Ap & Lateral Views Completed 02/08/2006 0 Payment Completed 11/29/2005 0 Payment Completed 11/24/2005 50877 Electrocardiogram Complete Completed 09/12/1995 11062956 Colonoscopy Completed Encounters Type Date Location Provider Dx Diagnosis Office Visit 04/18/2018 Main Office Tere Jimenez, Z01.818 Encounter for other 9:40a P.A. preprocedural examination H26.9 Unspecified cataract I49.9 Cardiac arrhythmia, unspecified E78.00 Pure hypercholesterolemia, unspecified Office Visit 05/20/2016 1:55p Main Office Cony Zaragoza, N39.0 Urinary tract PA infection, site not specified Office Visit 09/01/2015 11:15a Main Office Emanuel Oliva, J06.9 Acute upper M.D. respiratory infection, unspecified R05 Cough Office Visit 04/08/2014 1:45p Main Office Emanuel Oliva, E930.3 Erythromycin & M.D. Other Macrolides Adverse Effects 693.0 Dermatitis Due To Drugs & Medicines Office Visit 04/05/2014 9:30a Main Office Emanuel Oliva, 790.6 Abnormal Blood M.D. 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 786.2 Cough V74.1 Screening Examination Pulmonary Tuberculosis 786.7 Chest Sounds Abnormal 793.19 Other Nonspec Abnormal Finding Of Lung Field V12.61 Personal History, Pneumonia Recurrent Office Visit 02/27/2014 9:15a Main Office Emanuel Oliva M.D. 786.2 Cough 486 Pneumonia Organism Unspec 786.07 Wheezing Office Visit 02/20/2014 11:15a Main Office Emanuel Oliva M.D. 786.2 Cough 486 Pneumonia Organism Unspec 786.7 Chest Sounds Abnormal Office Visit 02/11/2014 4:45p Main Office Emanuel Oliva 786.05 Shortness Of M.D. Breath 786.2 Cough 786.7 Chest Sounds Abnormal 486 Pneumonia Organism Unspec Office Visit 10/06/2007 1:15p Main Office Emanuel Oliva 786.2 Cough M.D. Office Visit 09/29/2007 4:30p Main Office Emanuel Oliva 786.2 Cough M.D. Office Visit 09/22/2007 11:00a Main Office Emanuel Oliva 786.2 Cough M.D. Office Visit 09/07/2007 2:15p Main Office Mary Jo Burnett MD 786.2 Cough Office Visit 05/23/2007 9:30a Main Office Emanuel Oliva 786.50 Pain Chest M.D. Unspec 272.0 Hypercholesterolemia Pure V76.51 Special Screening For Malignant Neoplasms Colon V76.10 Screening For Malignant Neoplasm Breast V65.49 Counseling Other Spec Office Visit 05/06/2007 11:00a Main Office Riley Antoine 786.50 Pain Chest Unspec Jhon Rockwell Office Visit 10/07/2006 9:30a Main Office mariah 486 Pneumonia Organism Unspec 786.2 Cough Office Visit 10/03/2006 8:45a Main Office kleparosalba 486 Pneumonia Organism Unspec Office Visit 09/29/2006 9:30a Main Office kleparosalba 786.2 Cough 486 Pneumonia Organism Unspec Office Visit 08/16/2006 Main Office Neetualexiaquintin, 272.0 Hypercholesterolemia Pure 9:30a Jhon Castellanos 796.2 Blood Pressure Reading Elevated W/O Hypertension V76.10 Screening For Malignant Neoplasm Breast Office Visit 05/20/2006 12:55p Main Office Emanuel Oliva, 717.9 Internal M.D. Derangement Knee Unspec 729.81 Swelling Of Limb 719.46 Pain Joint Lower Leg 272.0 Hypercholesterolemia Pure V06.5 Tetanus Diphtheria (DT) V07.2 Prophylactic Immunotherapy Office Visit 03/23/2006 2:30p Main Office Emanuel Oliva M.D. 729.5 Pain In Limb 729.81 Swelling Of Limb Office Visit 02/14/2006 Main Office Hazel, 272.0 Hypercholesterolemia Pure 8:45a Jhon Castellanos 785.1 Palpitations 786.2 Cough V76.10 Screening For Malignant Neoplasm Breast V76.51 Special Screening For Malignant Neoplasms Colon Office Visit 12/27/2005 Main Office Hazel, 272.0 Hypercholesterolemia Pure 10:45a Jhon Castellanos 785.1 Palpitations 796.2 Blood Pressure Reading Elevated W/O Hypertension 465.9 URI Upper Respiratory Infections Acute Unspec Sites 786.2 Cough Office Visit 11/24/2005 2:30p Main Office Emanuel Oliva M.D. 785.1 Palpitations 272.0 Hypercholesterolemia Pure Office Visit 08/20/2005 11:15a Main Office mariah 462 Pharyngitis Acute 786.2 Cough Plan of Treatment Future Appointment(s):08/17/2019 9:45 am - Emanuel Oliva M.D. at Main [facility]11/29/2018 - Teto Voss D.O.M10.061 Idiopathic gout, right kneeNew Medication:Colcrys 0.6 mg - take 2 immediately then 1 1 hour later. then next day take 1 twice a day.Follow up:1 week recheck gout
--- NOTE | 2018-12-01 10:33 | ED ---
Lower Extremity - HPI Summary HPI Summary: 83 yr old female with right knee pain, swelling, redness. Onset four days ago. No trauma. She is having a hard time putting weight on the leg or bending the knee. No fever or chills. - History of Current Complaint Chief Complaint: UCLowerExtremity Stated Complaint: RIGHT LEG CONCERN - 4DAYS PAIN & SWELLING Time Seen by Provider: 12/01/18 10:20 Pain Intensity: 2 - Allergies/Home Medications Allergies/Adverse Reactions: Allergies Allergy/AdvReac Type Severity Reaction Status Date / Time clarithromycin Allergy Hives Verified 12/01/18 10:11 amoxicillin AdvReac Vomiting Verified 12/01/18 10:11 codeine AdvReac Vomiting Verified 12/01/18 10:11 Home Medications: Home Medications Acetaminophen [Acetaminophen Extra Strength] 500 mg PO Q4H PRN 12/01/18 [ History Confirmed 12/01/18] PMH/Surg Hx/FS Hx/Imm Hx - Surgical History Surgery Procedure, Year, and Place: Left Knee Arthroscopy (torn meniscus), , [place]; Right Rotator Cuff, ~1993, [place]; Right Elbow Bursa and Nerve, ~ 1992, [place]; Tubal Ligation, ~1976, [place] Infectious Disease History: No Infectious Disease History: Reports: Hx Hepatitis - age 10, unkown kind Denies: Traveled Outside the in Last 30 Days - Family History Known Family History: Positive: Cardiac Disease, Hypertension - Social History Alcohol Use: None Substance Use Type: Reports: None Smoking Status (MU): Never Smoked Tobacco Review of Systems Negative: Fever, Chills Positive: Other - right knee pain, swelling, redness,. All Other Systems Reviewed And Are Negative: Yes Physical Exam Triage Information Reviewed: Yes Vital Signs On Initial Exam: Initial Vitals Temp Pulse Resp BP Pulse Ox 98.7 F 83 17 153/71 97 12/01/18 10:09 12/01/18 10:09 12/01/18 10:09 12/01/18 10:09 12/01/18 10:09 Vital Signs Reviewed: Yes Appearance: Positive: Well-Appearing, No Pain Distress Skin: Positive: Warm Head/Face: Positive: Normal Head/Face Inspection Eyes: Positive: EOMI ENT: Positive: Normal ENT inspection Neck: Positive: Nontender Respiratory/Lung Sounds: Positive: Clear to Auscultation, Breath Sounds Present Cardiovascular: Positive: RRR. Negative: Bradycardia Abdomen Description: Positive: Nontender Musculoskeletal: Positive: Other - Right knee with effusion, Limited ROM, erythema anterior knee. Neurological: Positive: Sensory/Motor Intact, Alert, Oriented to Person Place, Time, CN Intact II-III. Negative: Normal Gait - trouble bearing weight. Psychiatric: Positive: Normal Diagnostics - Vital Signs Vital Signs Temp Pulse Resp BP Pulse Ox 12/01/18 10:09 98.7 F 83 17 153/71 97 - Laboratory Lab Statement: Any lab studies that have been ordered have been reviewed, and results considered in the medical decision making process. Lower Extremity Course/Dx - Course Course Of Treatment: Case DW Noy Butterfield NP at [facility]. The patient will go by ambulance. The patient is a fall risk, and the daughter states it is dangerous for her to try to drive her and move her due to inability to use right leg, her advanced age, pain in knee. - Diagnoses Provider Diagnoses: Right knee pain, Effusion, right knee, Hypertension Discharge - Sign-Out/Discharge Documenting (check all that apply): Patient Departure All imaging exams completed and their final reports reviewed: No Studies - Discharge Plan Condition: Good Disposition: TRANS HIGHER LVL OF CARE FAC Referrals: Emanuel Oliva MD [Primary Care Provider] - - Billing Disposition and Condition Condition: GOOD Disposition: Trans Higher Lvl of Care Fac
[2018-12-01 10:39] VITALS: BP 135/56
== END 2018-12-01 10:39 | disposition short-term general hospital (02) ==
LOC: UCCORT 09:39
DX: M25.561 Pain in right knee (principal); M25.461 Effusion, right knee; I10 Essential (primary) hypertension; Z88.1 Allergy status to other antibiotic agents; Z88.0 Allergy status to penicillin; Z88.5 Allergy status to narcotic agent
CPT/HCPCS: 99213; G0463